=== PATIENT | male | born 1965 | race Hispanic/Latino ===

== ENCOUNTER 2023-10-15 15:22 | Emergency (ER) | payer OTHER ==
[~2023-10-15] VITALS: Ht 180.3 cm; Wt 115.7 kg
[2023-10-15] MEDS: TRAMADOL HCL 50 MG TABLET PO ONE (19:27)
[2023-10-15] MEDS: KETOROLAC 60 MG VIAL (30MG/ML) IM ONE (19:28)
[2023-10-15 19:46] VITALS: BP 135/76; PULSE 68; RESP 18; O2SAT 98
[2023-10-15] MEDS ORDERED: IBUP-2070 PO (19:55)
[2023-10-15] MEDS ORDERED: CYCL5TAB PO (19:55)
== END 2023-10-15 20:12 | disposition home or self-care (01) ==
LOC: EEVIPCON 15:22 → EDH 15:22
DX: S86.912A Strain of unspecified muscle(s) and tendon(s) at lower leg level, left leg, initial encounter (principal); E11.9 Type 2 diabetes mellitus without complications; X58.XXXA Exposure to other specified factors, initial encounter; Y93.89 Activity, other specified; Y92.89 Other specified places as the place of occurrence of the external cause; Y99.8 Other external cause status
CPT/HCPCS: 99285; 96374; 73700; 73562; J1885